=== PATIENT | male | born 1940 | race Caucasian/White ===

== ENCOUNTER 2017-06-22 10:09 | Emergency (ER) | payer MEDICARE, BC ==
[~2017-06-22] VITALS: Ht 185.4 cm; Wt 89.8 kg
[2017-06-22] MEDS ORDERED: GABA-586 PO (10:22)
[2017-06-22] MEDS ORDERED: CEPH750C6 PO (10:22)
[2017-06-22] MEDS ORDERED: OXYC-327 PO (10:22)
[2017-06-22] MEDS ORDERED: SERT50TA PO (10:22)
--- NOTE | 2017-06-22 11:16 | PHYS DOC ---
Past Medical History Past Medical History: Hypertension Past Surgical History: Other Additional Past Surgical Histo: HERNIA Alcohol Use: None Drug Use: None Adult General Chief Complaint Chief Complaint: KNEE INJURY HPI HPI Patient is a 76 year old medical history of hypertension who presents today complaining of mild generalized left knee pain with swelling that began 3 days ago. Patient denies any trauma. Patient states he has had similar swelling before and was seen by Dr. Souza. He states is an appointment with Dr. Souza in 2 weeks. He states his pain is worse on ambulation. Review of Systems Review of Systems Constitutional: Denies fever or chills [] Musculoskeletal: Left knee pain and swelling Integument: Denies rash or skin lesions [] Neurologic: Denies headache, focal weakness or sensory changes [] Allergies Allergies Allergies Coded Allergies Type Severity Reaction Last Updated Verified No Known Drug Allergies 06/22/17 No Physical Exam Physical Exam Constitutional: Well developed, well nourished, no acute distress, non-toxic appearance. [] Skin: Warm, dry, no erythema, no rash. [] Back: No tenderness, no CVA tenderness. [] Extremities: Left knee with small amount of diffuse soft tissue swelling with no redness or warmth. Tenderness diffusely on the anterior aspect of the left knee. Full range of motion to the left knee including negative Krzysztof sign and negative Grant's sign negative anterior-posterior drawer sign. Patient holding his left knee straight with no difficulties. +2 left pedal pulse. Neurologic: Alert and oriented X 3, normal motor function, normal sensory function, no focal deficits noted. [] Psychologic: Affect normal, judgement normal, mood normal. [] Current Patient Data Vital Signs Vital Signs Date Time Temp Pulse Resp B/P (MAP) Pulse Ox O2 Delivery O2 Flow Rate FiO2 06/22/17 10:10 97.9 94 22 98 Room Air 97.9 EKG EKG [] Radiology/Procedures Radiology/Procedures []PROCEDURE: KNEE LEFT 4V Indication pain and swelling. AP oblique and lateral views of the left knee were obtained as well as a sunrise view. There are degenerative changes. There is significant medial joint space compartment narrowing. Small osteophytes are noted. There is chondrocalcinosis. There is a joint effusion and patellofemoral narrowing. No acute bony finding is seen. IMPRESSION: Degenerative changes with associated joint effusion. No acute bony finding seen DICTATED and SIGNED BY: JAMIE WALLACE MD DATE: 06/22/17 1211 CC: TOMÁS RAND MD; IRMA WHITFIELD APRN ~ Course & Med Decision Making Course & Med Decision Making Pertinent Labs and Imaging studies reviewed. (See chart for details) Patient is in the ED with complaints of left knee pain, no known injury. Left knee x-rays interpreted by radiologist 4 views were noted for degenerative changes with associated joint effusion. No acute findings. Patient was placed in an immobilizer. Ice elevation encouraged. Follow-up with orthopedic doctor on Friday. Discharge with naproxen, Lortab and prednisone. Dragon Disclaimer Dragon Disclaimer This electronic medical record was generated, in whole or in part, using a voice recognition dictation system. Departure Departure Impression: Primary Impression: Left knee pain Additional Impressions: Effusion of left knee joint Left knee DJD Disposition: HOME, SELF-CARE Condition: STABLE Referrals: VICKIE SOUZA MD Follow-up in the next 1 week Patient Instructions: Arthritis, Nonspecific Additional Instructions: You were seen with left knee pain and swelling. The left knee x-rays are negative for any acute findings but noted for arthritis and some joint effusion. Wear the immobilizer provided as tolerated. Ice and elevate the extremity. Follow-up with orthopedic doctor on Friday or any time in the course of this week or next week. Scripts Hydrocodone Bit/Acetaminophen (HYDROCODONE-APAP 7.5-325 ) 1 Each Tablet 1 TAB PO PRN Q6HRS Y for PAIN, #20 TAB 0 Refills Prov: IRMA WHITFIELD APRN 06/22/17 Prednisone (PREDNISONE) 10 Mg Tablet 10 MG PO UD for PREDNISONE TAPER, #39 TAB 0 Refills Take 3 tablets by mouth twice a day for 3 days, then take 2 tablets by mouth twice a day for 3 days, then take 1 tablet by mouth twice a day for 3 days, then take 1 tablet by mouth daily x 3 days, then stop. Prov: IRMA WHITFIELD APRN 06/22/17 Problem Qualifiers Primary Impression: Left knee pain Chronicity: acute Qualified Codes: M25.562 - Pain in left knee Additional Impressions: Left knee DJD Osteoarthritis type: unspecified Qualified Codes: M17.12 - Unilateral primary osteoarthritis, left knee IRMA WHITFIELD APRN Jun 22, 2017 11:16
--- NOTE | 2017-06-22 12:16 | RAD ---
Indication pain and swelling. AP oblique and lateral views of the left knee were obtained as well as a sunrise view. There are degenerative changes. There is significant medial joint space compartment narrowing. Small osteophytes are noted. There is chondrocalcinosis. There is a joint effusion and patellofemoral narrowing. No acute bony finding is seen. IMPRESSION: Degenerative changes with associated joint effusion. No acute bony finding seen
[2017-06-22 13:00] VITALS: BP 145/87
[2017-06-22] MEDS ORDERED: PRED-220 PO (13:02)
[2017-06-22] MEDS ORDERED: HYDR-2762 PO (13:02)
== END 2017-06-22 13:33 | disposition home or self-care (01) ==
LOC: ER 10:09
DX: M17.12 Unilateral primary osteoarthritis, left knee (principal); M25.462 Effusion, left knee; I10 Essential (primary) hypertension
CPT/HCPCS: 29505; 73564; 99284-25

== ENCOUNTER → 2018-03-16 | Outpatient (CLI) | payer MEDICARE, BC ==
[2018-03-16 09:18] LABS: ADD MAN DIFF? NO
[2018-03-16 09:22] LABS: BASO # 0.1 x10^3/uL (0.0-0.2); BASO % 1 % (0-3); EOS # 0.2 x10^3/uL (0.0-0.7); EOS % 2 % (0-3); HEMATOCRIT 48.3 % (39.0-53.0); HEMOGLOBIN 16.5 g/dL (13.0-17.5); LYMPH # 1.5 x10^3/uL (1.0-4.8); LYMPH % 17 % (24-48); MEAN CORPUSCULAR HEMOGLOBIN 29 pg (25-35); MEAN CORPUSCULAR HGB CONC 34 g/dL (31-37); MEAN CORPUSCULAR VOLUME 85 fL (79-100); MONO # 0.7 x10^3/uL (0.0-1.1); MONO % 8 % (0-9); NEUT # 6.5 x10^3uL (1.8-7.7); NEUT % 73 % (31-73); PLATELET COUNT 290 x10^3/uL (140-400); RED BLOOD COUNT 5.72 x10^6/uL (4.30-5.70); RED CELL DISTRIBUTION WIDTH 13.6 % (11.5-14.5); WHITE BLOOD COUNT 8.9 x10^3/uL (4.0-11.0)
[2018-03-16 09:33] LABS: PARTIAL THROMBOPLASTIN TIME 32 SEC (24-38); PROTHROMBIN TIME PATIENT 12.5 SEC (11.7-14.0)
[2018-03-16 10:00] LABS: ALBUMIN 3.4 g/dL (3.4-5.0); ANION GAP 8 (6-14); BLOOD UREA NITROGEN 16 mg/dL (8-26); CALCIUM 9.1 mg/dL (8.5-10.1); CARBON DIOXIDE 28 mmol/L (21-32); CHLORIDE 102 mmol/L (98-107); CREATININE 0.8 mg/dL (0.7-1.3); GFR 94.2; GLUCOSE 113 mg/dL (70-99); POTASSIUM 4.3 mmol/L (3.5-5.1); SODIUM 138 mmol/L (136-145)
[2018-03-16 10:53] LABS: SEDIMENTATION RATE 10 (0-15)
[2018-03-16 12:30] LABS: BILIRUBIN,URINE NEGATIVE (NEG); CLARITY,URINE CLEAR; COLOR,URINE YELLOW; GLUCOSE,URINE NEGATIVE (NEG); NITRITE,URINE NEGATIVE (NEG); PROTEIN,URINE NEGATIVE (NEG-TRACE); UROBILINOGEN,URINE 0.2 mg/dL (0.2 mg/dL)
[2018-03-16 12:38] LABS: BACTERIA,URINE 0 /HPF (0-FEW); RBC,URINE 0 /HPF (0-2); WBC,URINE 0 /HPF (0-4)
[2018-03-16 21:12] LABS: MRSA BY PCR Negative (Negative)
== END | disposition home or self-care (01) ==
LOC: SURGPAT 13:55
DX: Z01.818 Encounter for other preprocedural examination (principal); I10 Essential (primary) hypertension; E55.9 Vitamin D deficiency, unspecified
CPT/HCPCS: 36415; 71046; 80048; 81001; 82040; 82306; 85025; 85610; 85651; 85730; 87641; 93005

== ENCOUNTER → 2021-03-22 | Outpatient (CLI) | payer MEDICARE, BC ==
[2018-04-10 14:09] VITALS: BP 131/66
[~2021-03-22] MED LIST: ASPI-482 PO; BUPIVACAINE MPF 0.5% 10 ML VIAL. INT ART ONE; CEPH750C6 PO; CHOL10003 PO; FERR325T14 PO; GABA300C18 PO; HYDR-2765 PO; IOHEXOL 300 MG/ML 50 ML VIAL. INT ART ONE; LIDOCAINE 1% Multi-Dose 20 ML VIAL. ID ONE; NAPR220T70 PO; OXYC1TAB19 PO; PRED-220 PO; SERT50TA PO; methylPREDNISolone ACETATE 40 MG/ML VIAL. INT ART ONE
--- NOTE | 2021-03-22 16:47 | KCIC ---
EXAM: Right FLUOROSCOPY GUIDED HIP ARTHROGRAM HISTORY: History of right hip pain COMPARISON: None available TECHNIQUE: Consent: An informed consent was obtained from the patient prior to the procedure. Appropriate time out procedures were performed. The skin was prepped and draped in the usual fashion under aseptic precautions. 1% lidocaine was util ized for local anesthesia. Under fluoroscopic guidance a 22 gauge long spinal needle was used to access the hip joint. A mixture of 4 mL of iodinated contrast, 4 mL of bupivacaine, 4 mL of lidocaine and 80 mg of Depo-Med rol . No immediate complications. Total fluoroscopic time 14 seconds. Total fluoroscopic images 1. IMPRESSION: Technically successful fluoroscopic-guided right hip joint. Electronically signed by: Hardik Diaz MD (03/22/2021 4:45 PM) [id number]
== END | disposition home or self-care (01) ==
LOC: KCIC 10:30
PROVIDERS: ATTEND Orthopaedic Surgery
DX: M25.551 Pain in right hip (principal); M19.90 Unspecified osteoarthritis, unspecified site; F41.9 Anxiety disorder, unspecified; F32.9 Major depressive disorder, single episode, unspecified; I10 Essential (primary) hypertension; Z87.891 Personal history of nicotine dependence; Z79.899 Other long term (current) drug therapy; Z98.890 Other specified postprocedural states
CPT/HCPCS: 20610; 77002; J1030; J3490; Q9967

== ENCOUNTER → 2021-10-01 | Outpatient (CLI) | payer MEDICARE, BC ==
[2018-04-10 14:09] VITALS: BP 131/66
[~2021-10-01] MED LIST changes: +AMLO2.5T5 PO; -BUPIVACAINE MPF 0.5% 10 ML VIAL. INT ART ONE; -IOHEXOL 300 MG/ML 50 ML VIAL. INT ART ONE; -LIDOCAINE 1% Multi-Dose 20 ML VIAL. ID ONE; +NAPR-514 PO; -methylPREDNISolone ACETATE 40 MG/ML VIAL. INT ART ONE; +prevagen PO
[2021-10-01 09:30] LABS: ALBUMIN 3.9 g/dL (3.4-5.0); CREATININE 0.8 mg/dL (0.7-1.3); GFR 93.3; POTASSIUM 4.2 mmol/L (3.5-5.1)
[2021-10-01 09:59] LABS: PROTHROMBIN TIME PATIENT 12.2 SEC (11.7-14.0)
[2021-10-01 10:22] LABS: BASO # 0.1 x10^3/uL (0.0-0.2); BASO % 1 % (0-3); EOS # 0.1 x10^3/uL (0.0-0.7); EOS % 1 % (0-3); HEMATOCRIT 52.3 % (39.0-53.0); HEMOGLOBIN 17.7 g/dL (13.0-17.5); LYMPH # 1.6 x10^3/uL (1.0-4.8); LYMPH % 24 % (24-48); MEAN CORPUSCULAR HEMOGLOBIN 31 pg (25-35); MEAN CORPUSCULAR HGB CONC 34 g/dL (31-37); MEAN CORPUSCULAR VOLUME 90 fL (79-100); MONO # 0.5 x10^3/uL (0.0-1.1); MONO % 7 % (0-9); NEUT # 4.6 x10^3/uL (1.8-7.7); NEUT % 67 % (31-73); PLATELET COUNT 210 x10^3/uL (140-400); RED BLOOD COUNT 5.79 x10^6/uL (4.30-5.70); RED CELL DISTRIBUTION WIDTH 13.1 % (11.5-14.5); WHITE BLOOD COUNT 6.9 x10^3/uL (4.0-11.0)
--- NOTE | 2021-10-01 12:25 | EKG ---
[facility] [address] [place] [address] Test Date: 2021-10-01 Test Time: 12:21:16 Pat Name: VICKIE POOLE Department: Room: Gender: Safety Risk Lead: : 1940 Requested By: HOMER GATICA Order Number: [id number] Reading MD: Freeman Childress MD Measurements Intervals [place] Rate: 65 P: 52 MT: 172 QRS: -9 QRSD: 92 T: 43 QT: 410 QTc: 432 Interpretive Statements SINUS RHYTHM Electronically Signed On 10-02-2021 9:27:28 BUS AND RAIL OPERATOR by Freeman Childress MD
--- NOTE | 2021-10-01 13:17 | RAD ---
EXAM: Chest, 2 views. HISTORY: Hypertension. Preoperative evaluation. COMPARISON: 03/16/2018 FINDINGS: 2 views of the chest are obtained. There is no infiltrate, pleural effusion or pneumothorax . The heart is normal in size. There are calcified granulomas. IMPRESSION: No acute pulmonary finding. Electronically signed by: Anitha Farris MD (10/01/2021 1:15 PM) [id number]
[2021-10-02 01:10] LABS: HEMOGLOBIN A1C 5.4 % (4.8-5.6)
== END ==
LOC: SURGPAT 12:05
PROVIDERS: ATTEND Orthopaedic Surgery
DX: Z01.818 Encounter for other preprocedural examination (principal); M16.11 Unilateral primary osteoarthritis, right hip; J84.10 Pulmonary fibrosis, unspecified
CPT/HCPCS: 36415; 71046; 80048; 82040; 82306; 83036; 85025; 85610; 85651; 85730; 87641; 93005

== ENCOUNTER → 2022-03-22 | Outpatient (CLI) | payer MEDICARE, BC ==
[2021-10-25 11:00] VITALS: BP 110/56
--- NOTE | 2022-03-22 16:25 | RAD ---
EXAM: XR EXAM OF ANKLE_RIGHT 3VIEWS 03/22/2022 1:09 PM CLINICAL INDICATION: Medial malleolus pain COMPARISON: None TECHNIQUE: AP, oblique, and lateral views of the right ankle FINDINGS: There is a lucency in the lateral malleolus with sclerotic margins, likely an old fracture . There is chronic-appearing fragmentation of the medial malleolus, also likely sequela of old injury . No definite acute fracture. The talar dome is intact. Ankle mortise is symmetric. There are tiny ti biotalar osteophytes. Small calcaneal enthesophytes. No focal soft tissue swelling. IMPRESSION: Probable old lateral malleolar fracture and sequela of old medial ankle injury. Electronically signed by: Mitra Rainey MD (03/22/2022 4:22 PM) [id number]
== END ==
LOC: RAD 12:51
PROVIDERS: ATTEND Family Medicine
DX: M77.31 Calcaneal spur, right foot (principal); M25.771 Osteophyte, right ankle
CPT/HCPCS: 73610